=== PATIENT | female | born 1980 | race Caucasian/White ===

== ENCOUNTER → 2017-08-06 | Outpatient (CLI) | payer MEDICAID ==
[~2017-08-06] MED LIST: AC500T PO; ACHD5005 PO; AZITHROMYCIN; CEPH-38 PO; CLIN300C3 PO; DIPH50CA; GFN600TCR PO; HYDR1TAB PO; IBUP-15 PO; METH4TAB PO; METR500T PO; MULT-930 PO; PRCD5U PO; PRD20T PO; SULF1TAB38 PO; VALA1000 PO
--- NOTE | 2017-08-06 13:28 | Diagnostic Imaging Report ---
INDICATION: Pelvic pain. TECHNIQUE: Multiple real-time grayscale images were obtained in the pelvis in various projections endovaginally. FINDINGS: The uterus measures 7.2 x 4.6 x 4.3 cm. The endometrium is approximately 13 mm in thickness. No myometrial mass is identified. The left ovary is not visualized due to overlying bowel gas. There is a large cystic mass located in the right adnexa measuring approximately 6.4 x 6.8 x 9.8 cm. It is uncertain if this represents a true cystic mass versus perhaps a markedly dilated hydrosalpinx. There is a small amount of free fluid present. No definite normal ovarian tissue on the right is identified. IMPRESSION: Large cystic mass in the right adnexa, perhaps significantly dilated hydrosalpinx. A large adnexal cyst would be an additional consideration. Close-interval follow-up is recommended to confirm stability and clearing. Dictated by: Dictated on workstation # [id number]
== END ==
LOC: RAD 12:24
PROVIDERS: ATTEND Family Medicine
DX: N83.8 Other noninflammatory disorders of ovary, fallopian tube and broad ligament (principal); R00.2 Palpitations
CPT/HCPCS: 76830; 76856; 93005

== ENCOUNTER 2017-10-21 06:12 | Day surgery (SDC) | payer MEDICAID ==
[~2017-10-21] VITALS: Ht 154.9 cm; Wt 83.9 kg
[~2017-10-21 06:12] MED LIST changes: +CITA20TA12 PO; +OMEP40CA36 PO
[2017-10-21] MEDS ORDERED: LACTATED RINGERS 1,000 ML IV ONE (06:26)
[2017-10-21] MEDS ORDERED: LACTATED RINGERS 1,000 ML IV PRN ×2 (06:26→06:52)
[2017-10-21 06:30] VITALS: BP 107/63
[2017-10-21] MEDS ORDERED: metroNIDAZOLE 500MG/100ML IVPB 100 ML IV ONE (06:30)
[2017-10-21] MEDS ORDERED: ceFAZolin 2 GM IV Premixed 50 ML IV ONE (06:30)
[2017-10-21] MEDS ORDERED: BUPIVACAINE 0.25% 30 ML (SENSORCAINE) VIAL ONE (06:44)
[2017-10-21] MEDS ORDERED: GLYCOPYRROLATE 0.2 MG/ML (ROBINUL) 2 ML VIAL ONE (06:56)
[2017-10-21] MEDS ORDERED: NEOSTIGMINE 1 MG/ML 5 ML SYRINGE ONE (06:56)
[2017-10-21] MEDS ORDERED: LIDOCAINE PF 2% 5 ML (XYLOCAINE) VIAL ONE (06:56)
[2017-10-21] MEDS ORDERED: ROCURONIUM 10 MG/ML 5 ML SYRINGE IV ONE (06:56)
[2017-10-21] MEDS ORDERED: DEXAMETHASONE 10 MG/ML (DECADRON) 1 ML VIAL ONE (06:56)
[2017-10-21] MEDS ORDERED: fentaNYL INJECTION 250 MCG/5 ML AMP ONE (06:56)
[2017-10-21] MEDS ORDERED: ONDANSETRON 4 MG/2 ML (SDV) Z0FRAN ONE (06:56)
[2017-10-21] MEDS ORDERED: proPOfol 200 MG/20 ML (DIPRIVAN) VIAL IV ONE (06:56)
[2017-10-21] MEDS ORDERED: SEVOFLURANE (ULTANE) 15 ML INHAL SOLN ONE (06:56)
[2017-10-21] MEDS ORDERED: MIDAZOLAM 2 MG/2 ML (VERSED) VIAL ONE (06:56)
[2017-10-21] MEDS ORDERED: FAMOTIDINE 20MG/2ML IV (PEPCID) IV ONE (07:00)
--- NOTE | 2017-10-21 07:01 | Progress Note-Pre Operative ---
Pre-Operative Progress Note H&P Reviewed The H&P was reviewed, patient examined and no changes noted. Date Seen by Provider: Oct 21, 2017 Time Seen by Provider: 06:55 Date H&P Reviewed: Oct 21, 2017 Time H&P Reviewed: 07:00 Pre-Operative Diagnosis: POP, Rectocele, Adnexal cystic mass NORMAN RGOERS DO Oct 21, 2017 7:01 am
[2017-10-21 07:11] LABS: BASOPHILS % (AUTO) 0 % (0-10); EOSINOPHILS # (AUTO) 0.1 10^3/uL (0.0-0.3); EOSINOPHILS % (AUTO) 2 % (0-10); HEMATOCRIT 33 % (35-52); HEMOGLOBIN 11.1 G/DL (11.5-16.0); LYMPHOCYTES # (AUTO) 2.1 X 10^3 (1.0-4.0); LYMPHOCYTES % (AUTO) 37 % (12-44); MEAN CORPUSCULAR HEMOGLOBIN 26 PG (25-34); MEAN CORPUSCULAR HGB CONC 33 G/DL (32-36); MEAN CORPUSCULAR VOLUME 77 FL (80-99); MEAN PLATELET VOLUME 9.9 FL (7.4-10.4); MONOCYTES # (AUTO) 0.3 X 10^3 (0.0-1.0); MONOCYTES % (AUTO) 5 % (0-12); NEUTROPHILS # (AUTO) 3.2 X 10^3 (1.8-7.8); NEUTROPHILS % (AUTO) 56 % (42-75); PLATELET COUNT 345 10^3/uL (130-400); RED BLOOD COUNT 4.32 10^6/uL (4.35-5.85); RED CELL DISTRIBUTION WIDTH 14.7 % (10.0-14.5); WHITE BLOOD COUNT 5.8 10^3/uL (4.3-11.0)
[2017-10-21 07:13] LABS: HCG,QUALITATIVE URINE NEGATIVE (NEGATIVE)
[2017-10-21 07:22] LABS: AMPHETAMINE SCREEN, URINE POSITIVE (NEGATIVE); BARBITURATE SCREEN URINE NEGATIVE (NEGATIVE); BENZODIAZEPINES SCREEN URINE NEGATIVE (NEGATIVE); CANNABINOID SCREEN, URINE NEGATIVE (NEGATIVE); COCAINE SCREEN URINE NEGATIVE (NEGATIVE); METHADONE STAT NEGATIVE (NEGATIVE); METHAMPHETAMINE SCREEN URINE S POSITIVE (NEGATIVE); OPIATE SCREEN URINE NEGATIVE (NEGATIVE); OXYCODONE STAT NEGATIVE (NEGATIVE); PROPOXYPHENE STAT NEGATIVE (NEGATIVE); TRICYCLIC ANTIDEPRESSANTS SCRE NEGATIVE (NEGATIVE)
== END 2017-10-21 07:50 | disposition home or self-care (01) ==
LOC: SDC 06:12
PROVIDERS: ATTEND Obstetrics & Gynecology
DX: N81.2 Incomplete uterovaginal prolapse (principal); N81.6 Rectocele; N83.291 Other ovarian cyst, right side; F15.90 Other stimulant use, unspecified, uncomplicated; Z53.09 Procedure and treatment not carried out because of other contraindication; F17.210 Nicotine dependence, cigarettes, uncomplicated; E66.9 Obesity, unspecified; Z68.35 Body mass index [BMI] 35.0-35.9, adult
CPT/HCPCS: 36415; 80306; 84703; 85025; 86850; 86900; 86901; 87081; 94664

== ENCOUNTER 2017-11-09 12:05 | Outpatient (CLI) | payer MEDICAID ==
[~2017-11-09] VITALS: Ht 154.9 cm; Wt 83.9 kg
== END 2017-11-09 13:58 | disposition home or self-care (01) ==
LOC: PREOP 12:05
PROVIDERS: ATTEND Obstetrics & Gynecology
DX: Z01.818 Encounter for other preprocedural examination (principal)

== ENCOUNTER 2017-11-12 06:07 | Day surgery (SDC) | payer MEDICAID ==
[~2017-11-12] VITALS: Ht 154.9 cm; Wt 83.9 kg
[2017-11-12 06:20] VITALS: BP 123/77
[2017-11-12] MEDS ORDERED: LACTATED RINGERS 1,000 ML IV ONE (06:23)
[2017-11-12] MEDS ORDERED: LACTATED RINGERS 1,000 ML IV PRN (06:23)
[2017-11-12] MEDS ORDERED: ESTROGENS CONJ. CREAM 30 GM (PREMARIN) TUBE ONE (06:24)
[2017-11-12] MEDS ORDERED: BUPIVACAINE 0.25% 30 ML (SENSORCAINE) VIAL ONE (06:24)
[2017-11-12] MEDS ORDERED: NS (IVPB) 50 ML ONE (06:24)
[2017-11-12] MEDS ORDERED: VASOPRESSIN INJECTION 20 UNIT/ML VIAL ONE (06:24)
[2017-11-12] MEDS ORDERED: metroNIDAZOLE 500MG/100ML IVPB 100 ML IV ONE (06:30)
[2017-11-12] MEDS ORDERED: ceFAZolin 2 GM IV Premixed 50 ML IV ONE (06:30)
[2017-11-12 06:36] LABS: HCG,QUALITATIVE URINE NEGATIVE (NEGATIVE)
[2017-11-12 06:41] LABS: BASOPHILS % (AUTO) 0 % (0-10); EOSINOPHILS # (AUTO) 0.1 10^3/uL (0.0-0.3); EOSINOPHILS % (AUTO) 1 % (0-10); HEMATOCRIT 38 % (35-52); HEMOGLOBIN 12.6 G/DL (11.5-16.0); LYMPHOCYTES # (AUTO) 2.5 X 10^3 (1.0-4.0); LYMPHOCYTES % (AUTO) 32 % (12-44); MEAN CORPUSCULAR HEMOGLOBIN 25 PG (25-34); MEAN CORPUSCULAR HGB CONC 33 G/DL (32-36); MEAN CORPUSCULAR VOLUME 77 FL (80-99); MEAN PLATELET VOLUME 9.3 FL (7.4-10.4); MONOCYTES # (AUTO) 0.5 X 10^3 (0.0-1.0); MONOCYTES % (AUTO) 7 % (0-12); NEUTROPHILS # (AUTO) 4.7 X 10^3 (1.8-7.8); NEUTROPHILS % (AUTO) 60 % (42-75); PLATELET COUNT 385 10^3/uL (130-400); RED CELL DISTRIBUTION WIDTH 14.9 % (10.0-14.5); WHITE BLOOD COUNT 7.8 10^3/uL (4.3-11.0)
[2017-11-12 06:44] LABS: AMPHETAMINE SCREEN, URINE POSITIVE (NEGATIVE); BARBITURATE SCREEN URINE NEGATIVE (NEGATIVE); BENZODIAZEPINES SCREEN URINE NEGATIVE (NEGATIVE); CANNABINOID SCREEN, URINE NEGATIVE (NEGATIVE); COCAINE SCREEN URINE NEGATIVE (NEGATIVE); METHADONE STAT NEGATIVE (NEGATIVE); METHAMPHETAMINE SCREEN URINE S POSITIVE (NEGATIVE); OPIATE SCREEN URINE NEGATIVE (NEGATIVE); OXYCODONE STAT NEGATIVE (NEGATIVE); PROPOXYPHENE STAT NEGATIVE (NEGATIVE); TRICYCLIC ANTIDEPRESSANTS SCRE NEGATIVE (NEGATIVE)
== END 2017-11-12 07:00 | disposition home or self-care (01) ==
LOC: SDC 06:07
PROVIDERS: ATTEND Obstetrics & Gynecology
DX: N81.6 Rectocele (principal); D27.0 Benign neoplasm of right ovary; F17.210 Nicotine dependence, cigarettes, uncomplicated; Z53.09 Procedure and treatment not carried out because of other contraindication; F15.90 Other stimulant use, unspecified, uncomplicated
CPT/HCPCS: 36415; 80306; 84703; 85025; 86850; 86900; 86901